=== PATIENT | male | born 1975 | race Caucasian/White ===

== ENCOUNTER 2018-03-09 13:51 | Emergency (ER) | payer OTHER ==
[~2018-03-09] VITALS: Ht 188 cm; Wt 100.4 kg
[~2018-03-09 13:51] MED LIST: AMOXICILLIN 50500 MG PO; AMOXICILLIN 8751 TAB PO; BIAXIN 500MG T500 MG PO; CARAFATE 1GM1 G PO; CEPHALEXIN500 M1 PO; FLAGYL500 MG PO; FLEXERIL 1010 MG/TAB PO; LEVAQUIN 5500 MG/TA1 PO; NO HOME MEDICATIONS; NORCO 325 MG-51 TAB PO; PERCOCET 325 MG1 TA2 PO; PREDNISONE10 MG PO; PREDNISONE20 MG PO; PROTONIX 40MG T40 MG PO; ROBAXIN 50500 MG/TAB PO; TYLENOL EXTRA500 M1 PO
[2018-03-09 13:54] VITALS: TEMP 99.9
[2018-03-09 16:25] LABS: COLLECTION METHOD CLEAN CATCH
[2018-03-09 16:33] LABS: MUCOUS Present /lpf; PH 5 (5-8); SQUAMOUS EPITHELIAL 0-2 /hpf; URINE APPEARANCE Clear; URINE BACTERIA None Seen /hpf; URINE BILIRUBIN Negative (NEGATIVE); URINE BLOOD 1+ (NEGATIVE); URINE COLOR Yellow; URINE GLUCOSE Negative (NEGATIVE); URINE KETONE Negative (NEGATIVE); URINE LEUKOCYTE ESTERASE Negative (NEGATIVE); URINE NITRATE Negative (NEGATIVE); URINE PROTEIN(semi-quant) Negative (NEGATIVE); URINE RBC 0-2 /hpf; URINE UROBILINOGEN Negative (NEGATIVE)
[2018-03-09 16:44] LABS: BASO # 0.1 (0.0-0.2); BASO % 0.3 % (0.0-2.0); EOS # 0.1 (0.0-0.7); EOS % 0.6 % (0-4.0); GRAN # 11.2 (1.4-6.5); GRAN % 77.9 % (42.2-75.2); HEMATOCRIT 47.6 % (42.0-52.0); HEMOGLOBIN 16.4 g/dl (13.5-18.0); LYMPH # 1.5 (1.2-3.4); LYMPH % 10.6 % (20.0-51.0); MEAN CELL VOLUME 90 fl (80.0-100.0); MEAN CORPUSCULAR HEMOGLOBIN 31 pg (27.0-31.0); MEAN CORPUSCULAR HGB CONC 35 g/dl (33.0-37.0); MEAN PLATELET VOLUME 11.7 fl (7.4-10.4); MONO # 1.4 (0.1-0.6); PLATELET COUNT 178 K/mm3 (130-400); RED BLOOD COUNT 5.31 M/mm3 (4.20-5.60); REDCELL DISTRIBUTION WIDTH-CV 13.2 % (11.5-14.5)
[2018-03-09 16:59] LABS: ALBUMIN 4.3 gm/dL (3.5-5.0); BILIRUBIN,TOTAL 0.9 mg/dL (0.0-1.0); CALCIUM 9.2 mg/dL (8.4-10.2); CREATININE, serum 1.22 mg/dL (0.66-1.25); POTASSIUM 3.9 mmol/L (3.4-5.0); TOTAL PROTEIN 8.2 gm/dL (6.4-8.2)
[2018-03-09] MEDS ORDERED: FLAGYL500 MG PO (19:18)
[2018-03-09] MEDS ORDERED: CIPRO 500MG TA500 MG PO (19:18)
[2018-03-09] MEDS ORDERED: NORCO 325 MG-7.1 TAB PO (19:18)
[2018-03-09 19:39] VITALS: BP 102/67; PULSE 91
== END 2018-03-09 19:39 | disposition home or self-care (01) ==
LOC: COL.ER 13:51
PROVIDERS: Nurse Practitioner
DX: K57.90 Diverticulosis of intestine, part unspecified, without perforation or abscess without bleeding (principal); F17.210 Nicotine dependence, cigarettes, uncomplicated
CPT/HCPCS: J1170; J2405; J7030; Q9967

== ENCOUNTER 2018-03-22 10:16 | Inpatient (IN) | payer SELFPAY ==
[~2018-03-22] VITALS: Ht 188 cm; Wt 96.5 kg
[~2018-03-22 10:16] MED LIST changes: +CIPRO 500MG TA500 MG PO; +NORCO 325 MG-7.1 TAB PO
[2018-03-22 10:41] LABS: COLLECTION METHOD CLEAN CATCH
[2018-03-22 10:57] LABS: MUCOUS Present /lpf; PH 5 (5-8); SQUAMOUS EPITHELIAL 0-2 /hpf; URINE APPEARANCE Clear; URINE BACTERIA None Seen /hpf; URINE BILIRUBIN Negative (NEGATIVE); URINE BLOOD 1+ (NEGATIVE); URINE COLOR Amber; URINE GLUCOSE Negative (NEGATIVE); URINE KETONE Negative (NEGATIVE); URINE LEUKOCYTE ESTERASE Trace (NEGATIVE); URINE NITRATE Negative (NEGATIVE); URINE PROTEIN(semi-quant) 1+ (NEGATIVE); URINE RBC 0-2 /hpf
[2018-03-22 11:19] LABS: BASO # 0.1 (0.0-0.2); BASO % 0.3 % (0.0-2.0); EOS # 0.1 (0.0-0.7); EOS % 0.6 % (0-4.0); GRAN % 79.8 % (42.2-75.2); HEMATOCRIT 45.1 % (42.0-52.0); HEMOGLOBIN 15.2 g/dl (13.5-18.0); LYMPH # 1.6 (1.2-3.4); LYMPH % 9.7 % (20.0-51.0); MEAN CELL VOLUME 90 fl (80.0-100.0); MEAN CORPUSCULAR HEMOGLOBIN 31 pg (27.0-31.0); MEAN CORPUSCULAR HGB CONC 34 g/dl (33.0-37.0); MEAN PLATELET VOLUME 11.9 fl (7.4-10.4); MONO # 1.5 (0.1-0.6); MONO % 9.1 % (1.7-9.3); PLATELET COUNT 203 K/mm3 (130-400); RED BLOOD COUNT 4.99 M/mm3 (4.20-5.60); REDCELL DISTRIBUTION WIDTH-CV 12.9 % (11.5-14.5)
[2018-03-22 11:34] LABS: ALBUMIN 3.7 gm/dL (3.5-5.0); BILIRUBIN,TOTAL 0.9 mg/dL (0.0-1.0); C-REACTIVE PROTEIN 8.8 mg/dL (0.0-0.9); CALCIUM 8.9 mg/dL (8.4-10.2); CREATININE, serum 1.02 mg/dL (0.66-1.25); TOTAL PROTEIN 7.2 gm/dL (6.4-8.2)
[2018-03-22 16:21] VITALS: BP 99/59; PULSE 62; TEMP 97.8
[2018-03-22 16:45] VITALS: BP 90/51; PULSE 57; TEMP 98.9
[2018-03-22 17:59] VITALS: BP 90/52
[2018-03-22 21:34] VITALS: BP 103/68; PULSE 66; TEMP 98.3
[2018-03-23] VITALS (8 sets, daily range): BP systolic 92–133; BP diastolic 50–88; PULSE 55–77; TEMP 97.7–98.4
[2018-03-23 07:19] LABS: CALCIUM 8.2 mg/dL (8.4-10.2); CREATININE, serum 1.02 mg/dL (0.66-1.25); POTASSIUM 3.7 mmol/L (3.4-5.0)
[2018-03-23 07:36] LABS: HEMATOCRIT 39.3 % (42.0-52.0); HEMOGLOBIN 13.3 g/dl (13.5-18.0); MEAN CELL VOLUME 92 fl (80.0-100.0); MEAN CORPUSCULAR HEMOGLOBIN 31 pg (27.0-31.0); MEAN CORPUSCULAR HGB CONC 34 g/dl (33.0-37.0); MEAN PLATELET VOLUME 12.7 fl (7.4-10.4); PLATELET COUNT 168 K/mm3 (130-400); RED BLOOD COUNT 4.26 M/mm3 (4.20-5.60); REDCELL DISTRIBUTION WIDTH-CV 13.1 % (11.5-14.5)
[2018-03-23 08:54] LABS: BAND 1 % (0-10); EOSINOPHIL 2 % (0-4); LYMPHOCYTE 33 % (20.0-51.0); NEUTROPHILS 61 % (42.0-75.2)
[2018-03-24 02:57] VITALS: BP 122/76; PULSE 82; TEMP 98.6
[2018-03-24 08:29] VITALS: BP 123/77; PULSE 73; TEMP 98.5
[2018-03-24 12:12] VITALS: BP 125/88; PULSE 61; TEMP 98.5
[2018-03-24 16:03] VITALS: BP 120/76; PULSE 70; TEMP 98.3
[2018-03-24 19:47] VITALS: BP 140/85; PULSE 77; TEMP 98.3
[2018-03-25 00:44] VITALS: BP 131/87; PULSE 68; TEMP 98.6
[2018-03-25 03:20] VITALS: BP 104/66; PULSE 73; TEMP 98.6
[2018-03-25 07:29] VITALS: BP 123/76; PULSE 86; TEMP 98
== END 2018-03-25 12:00 | disposition home or self-care (01) | DRG 392 ==
LOC: COL.ER 10:16 → MEDICAL 12:48
PROVIDERS: Emergency Medicine; Physician Assistant; Surgery
DX: K57.20 Diverticulitis of large intestine with perforation and abscess without bleeding (principal); F17.210 Nicotine dependence, cigarettes, uncomplicated
CPT/HCPCS: J1170; J1650; J2405; J2543; J7030; Q9967

== ENCOUNTER 2018-07-26 23:02 | Emergency (ER) | payer SELFPAY ==
[~2018-07-26] VITALS: Ht 188 cm; Wt 88.6 kg
[2018-07-26 23:06] VITALS: BP 120/61; TEMP 97.7
[2018-07-26 23:57] LABS: COLLECTION METHOD CLEAN CATCH
[2018-07-26 23:59] LABS: BASO # 0.1 (0.0-0.2); BASO % 0.4 % (0.0-2.0); EOS # 0.2 (0.0-0.7); EOS % 1.1 % (0-4.0); GRAN # 14.2 (1.4-6.5); GRAN % 78.4 % (42.2-75.2); HEMATOCRIT 47.7 % (42.0-52.0); HEMOGLOBIN 16.9 g/dl (13.5-18.0); LYMPH # 2.1 (1.2-3.4); LYMPH % 11.8 % (20.0-51.0); MEAN CELL VOLUME 86 fl (80.0-100.0); MEAN CORPUSCULAR HEMOGLOBIN 30 pg (27.0-31.0); MEAN CORPUSCULAR HGB CONC 35 g/dl (33.0-37.0); MEAN PLATELET VOLUME 12.1 fl (7.4-10.4); MONO # 1.4 (0.1-0.6); MONO % 7.5 % (1.7-9.3); PLATELET COUNT 203 K/mm3 (130-400); RED BLOOD COUNT 5.57 M/mm3 (4.20-5.60); REDCELL DISTRIBUTION WIDTH-CV 13.4 % (11.5-14.5)
[2018-07-27 00:17] LABS: ALBUMIN 3.9 gm/dL (3.5-5.0); BILIRUBIN,TOTAL 1.2 mg/dL (0.0-1.0); C-REACTIVE PROTEIN 7.7 mg/dL (0.0-0.9); CALCIUM 9.2 mg/dL (8.4-10.2); CREATININE, serum 0.95 mg/dL (0.66-1.25); POTASSIUM 3.9 mmol/L (3.4-5.0); TOTAL PROTEIN 6.8 gm/dL (6.4-8.2)
[2018-07-27 00:21] LABS: MUCOUS Present /lpf; PH 5 (5-8); SQUAMOUS EPITHELIAL None Seen /hpf; URINE APPEARANCE Clear; URINE BACTERIA None Seen /hpf; URINE BILIRUBIN Negative (NEGATIVE); URINE BLOOD Negative (NEGATIVE); URINE COLOR Yellow; URINE GLUCOSE Negative (NEGATIVE); URINE KETONE Negative (NEGATIVE); URINE LEUKOCYTE ESTERASE Negative (NEGATIVE); URINE NITRATE Negative (NEGATIVE); URINE PROTEIN(semi-quant) Negative (NEGATIVE); URINE RBC 0-2 /hpf; URINE UROBILINOGEN Negative (NEGATIVE)
[2018-07-27] MEDS ORDERED: FLAGYL500 MG PO (02:30)
[2018-07-27] MEDS ORDERED: NORCO 325 MG-51 TAB PO (02:30)
[2018-07-27] MEDS ORDERED: CIPRO 500MG TA500 MG PO (02:30)
[2018-07-27 02:50] VITALS: PULSE 80
== END 2018-07-27 02:50 | disposition home or self-care (01) ==
LOC: COL.ER 23:02
PROVIDERS: Emergency Medicine
DX: K57.32 Diverticulitis of large intestine without perforation or abscess without bleeding (principal)
CPT/HCPCS: J1170; J2405; J7030; Q9967

== ENCOUNTER 2018-12-25 13:26 | Emergency (ER) | payer SELFPAY ==
[~2018-12-25] VITALS: Ht 188 cm; Wt 97.7 kg
[2018-12-25 13:31] VITALS: TEMP 98
[2018-12-25 17:05] VITALS: BP 99/72; PULSE 66
== END 2018-12-25 17:07 | disposition home or self-care (01) ==
LOC: COL.ER 13:26
DX: G43.909 Migraine, unspecified, not intractable, without status migrainosus (principal); F17.210 Nicotine dependence, cigarettes, uncomplicated
CPT/HCPCS: J1200; J1885; J2060; J2765; J7030

== ENCOUNTER → 2019-08-01 | Outpatient (CLI) | payer SELFPAY | LOC: COL.VAS 10:21 | DX: I73.9 Peripheral vascular disease, unspecified (principal); F17.200 Nicotine dependence, unspecified, uncomplicated ==

== ENCOUNTER 2020-03-18 22:28 | Emergency (ER) | payer SELFPAY ==
[~2020-03-18] VITALS: Ht 188 cm; Wt 95.5 kg
[2020-03-18 23:17] LABS: BASO # 0.1 (0.0-0.2); BASO % 0.6 % (0.0-2.0); EOS # 0.3 (0.0-0.7); EOS % 2.2 % (0-4.0); GRAN # 7.9 (1.4-6.5); GRAN % 63.2 % (42.2-75.2); HEMATOCRIT 46.7 % (42.0-52.0); HEMOGLOBIN 15.8 g/dl (13.5-18.0); LYMPH # 2.8 (1.2-3.4); LYMPH % 22.6 % (20.0-51.0); MEAN CELL VOLUME 90 fl (80.0-100.0); MEAN CORPUSCULAR HEMOGLOBIN 30 pg (27.0-31.0); MEAN CORPUSCULAR HGB CONC 34 g/dl (33.0-37.0); MEAN PLATELET VOLUME 12.5 fl (7.4-10.4); MONO # 1.3 (0.1-0.6); MONO % 10.4 % (1.7-9.3); PLATELET COUNT 172 K/mm3 (130-400); RED BLOOD COUNT 5.21 M/mm3 (4.20-5.60)
[2020-03-18 23:28] LABS: ALBUMIN 3.9 gm/dL (3.5-5.0); BILIRUBIN,TOTAL 0.3 mg/dL (0.0-1.0); CALCIUM 8.9 mg/dL (8.4-10.2); CREATININE, serum 0.99 (0.66-1.25); TOTAL PROTEIN 6.8 gm/dL (6.4-8.2)
[2020-03-19 00:12] VITALS: BP 125/93; PULSE 89; TEMP 98.3
== END 2020-03-19 00:13 | disposition home or self-care (01) ==
LOC: COL.ER 22:28
PROVIDERS: Emergency Medicine
DX: S00.212A Abrasion of left eyelid and periocular area, initial encounter (principal); S00.81XA Abrasion of other part of head, initial encounter; W07.XXXA Fall from chair, initial encounter; Y92.009 Unspecified place in unspecified non-institutional (private) residence as the place of occurrence of the external cause; R55 Syncope and collapse

== ENCOUNTER 2021-03-19 19:46 | Emergency (ER) | payer MEDICAID ==
[~2021-03-19] VITALS: Ht 188 cm; Wt 100.0 kg
[2021-03-19 20:23] LABS: HEMATOCRIT 51.4 % (42.0-52.0); HEMOGLOBIN 17.7 g/dl (13.5-18.0); MEAN CELL VOLUME 88 fl (80.0-100.0); MEAN CORPUSCULAR HEMOGLOBIN 30 pg (27.0-31.0); MEAN CORPUSCULAR HGB CONC 34 g/dl (33.0-37.0); MEAN PLATELET VOLUME 11.6 fl (7.4-10.4); PLATELET COUNT 232 K/mm3 (130-400); RED BLOOD COUNT 5.87 M/mm3 (4.20-5.60); REDCELL DISTRIBUTION WIDTH-CV 12.9 % (11.5-14.5)
[2021-03-19 20:36] LABS: ALBUMIN 4.5 gm/dL (3.5-5.0); CALCIUM 9.3 mg/dL (8.4-10.2); CREATININE, serum 1.12 (0.66-1.25); POTASSIUM 4.1 mmol/L (3.4-5.0); TOTAL PROTEIN 8.2 gm/dL (6.4-8.2)
[2021-03-19 21:14] LABS: EOSINOPHIL 1 % (0-4); LYMPHOCYTE 20 % (20.0-51.0); NEUTROPHILS 72 % (42.0-75.2)
[2021-03-19 21:14] LABS: COLLECTION METHOD CLEAN CATCH
[2021-03-19] MEDS ORDERED: AMOXICILLIN 8751 TAB PO (21:21)
[2021-03-19 21:25] LABS: MUCOUS Present /lpf; PH 5 (5-8); SQUAMOUS EPITHELIAL 0-2 /hpf; URINE APPEARANCE Hazy; URINE BACTERIA Rare /hpf; URINE BILIRUBIN Negative (NEGATIVE); URINE BLOOD Negative (NEGATIVE); URINE COLOR Amber; URINE GLUCOSE Negative (NEGATIVE); URINE KETONE Negative (NEGATIVE); URINE LEUKOCYTE ESTERASE Negative (NEGATIVE); URINE NITRATE Negative (NEGATIVE); URINE PROTEIN(semi-quant) 1+ (NEGATIVE); URINE RBC 0-2 /hpf; URINE UROBILINOGEN >=4.0 mg/dL (NEGATIVE)
[2021-03-19 21:32] VITALS: BP 136/90; PULSE 95; TEMP 98.3
== END 2021-03-19 21:40 | disposition home or self-care (01) ==
LOC: COL.ER 19:46
PROVIDERS: Emergency Medicine
DX: K57.32 Diverticulitis of large intestine without perforation or abscess without bleeding (principal); F17.210 Nicotine dependence, cigarettes, uncomplicated
CPT/HCPCS: J2270; J7030; Q9967

== ENCOUNTER 2021-03-30 19:40 | Emergency (ER) | payer MEDICAID ==
[~2021-03-30] VITALS: Ht 188 cm; Wt 100.0 kg
[2021-03-30 19:41] VITALS: TEMP 98
[2021-03-30 20:30] VITALS: BP 120/80; PULSE 80
== END 2021-03-30 20:40 | disposition home or self-care (01) ==
LOC: COL.ER 19:40
DX: J06.9 Acute upper respiratory infection, unspecified (principal); F17.210 Nicotine dependence, cigarettes, uncomplicated; Z20.822 Contact with and (suspected) exposure to COVID-19

== ENCOUNTER 2021-12-31 10:37 | Emergency (ER) | payer MEDICAID ==
[~2021-12-31] VITALS: Ht 188 cm; Wt 90.9 kg
[2021-12-31 10:43] VITALS: TEMP 97.4
[2021-12-31 11:30] LABS: HEMATOCRIT 47.4 % (42.0-52.0); HEMOGLOBIN 15.8 g/dl (13.5-18.0); MEAN CELL VOLUME 88 fl (80.0-100.0); MEAN CORPUSCULAR HEMOGLOBIN 29 pg (27-31); MEAN CORPUSCULAR HGB CONC 33 g/dl (33.0-37.0); MEAN PLATELET VOLUME 12.1 fl (7.4-10.4); PLATELET COUNT 199 K/mm3 (130-400); RED BLOOD COUNT 5.38 M/mm3 (4.20-5.60); REDCELL DISTRIBUTION WIDTH-CV 13.1 % (11.5-14.5)
[2021-12-31 11:43] LABS: ALANINE AMINOTRANSFERASE 57 U/L (0-55); ALBUMIN 3.6 gm/dL (3.5-5.0); ALKALINE PHOSPHATASE 94 U/L (40-150); ANION GAP 9 mmol/L (7-16); AST,SGOT 31 U/L (5-34); BILIRUBIN,TOTAL 0.5 mg/dL (0.2-1.2); BLOOD UREA NITROGEN 13 mg/dL (9-21); CALCIUM 8.8 mg/dL (8.4-10.2); CARBON DIOXIDE 22 mmol/L (22-29); CHLORIDE 109 mmol/L (98-107); CREATININE, serum 1.18 mg/dL (0.72-1.25); GLUCOSE 139 mg/dL (70-99); POTASSIUM 3.9 mmol/L (3.5-4.5); SODIUM 140 mmol/L (136-145); TOTAL PROTEIN 6.5 gm/dL (6.2-8.1)
[2021-12-31 11:49] LABS: ALCOHOL(ethanol),MEDICAL < 10 mg/dL (0-10); TROPONIN-I < 0.010 ng/mL (0.00-0.033)
[2021-12-31 12:00] LABS: BAND 5 % (0-10); EOSINOPHIL 4 % (0-4); LYMPHOCYTE 26 % (20.0-51.0); METAMYELOCYTE 1 % (0-0); NEUTROPHILS 55 % (42.0-75.2); PLATELET ESTIMATE NORMAL (NORMAL)
[2021-12-31 13:21] VITALS: BP 113/92; PULSE 75
== END 2021-12-31 13:30 | disposition home or self-care (01) ==
LOC: COL.ER 10:37
PROVIDERS: Physician Assistant
DX: R55 Syncope and collapse (principal); R11.0 Nausea; Z20.822 Contact with and (suspected) exposure to COVID-19